=== PATIENT | male | born 1970 | race Caucasian/White ===

== ENCOUNTER 2016-08-04 21:56 | Emergency (ER) | payer OTHER | END 2016-08-05 03:44 | disposition home or self-care (01) | LOC: ER1 21:56 | DX: S62.001A Unspecified fracture of navicular [scaphoid] bone of right wrist, initial encounter for closed fracture (principal); F17.200 Nicotine dependence, unspecified, uncomplicated; V29.9XXA Motorcycle rider (driver) (passenger) injured in unspecified traffic accident, initial encounter; Y93.89 Activity, other specified | CPT/HCPCS: 29125; 73110; 96372; 99283; J1885 ==

== ENCOUNTER 2020-10-04 00:51 | Emergency (ER) | payer OTHER ==
[2020-10-04 02:35] LABS: HEMOGLOBIN 14.6 gm/dl (14.0-17.5); RED BLOOD COUNT 4.68 M/UL (4.20-5.50); WHITE BLOOD COUNT 16.1 K/UL (4.5-11.0)
[2020-10-04 02:48] LABS: BUN/CREATININE RATIO 23 (0-10)
[2020-10-06 17:09] LABS: CHLAMYDIA TRACHOMATIS, NAA Negative (Negative); NEISSERIA GONORRHOEAE, NAA Negative (Negative)
== END 2020-10-04 06:27 | disposition home or self-care (01) ==
LOC: ER1 00:51
PROVIDERS: Emergency Medicine
DX: R07.89 Other chest pain (principal); N43.3 Hydrocele, unspecified; I50.9 Heart failure, unspecified; F17.200 Nicotine dependence, unspecified, uncomplicated; Z20.822 Contact with and (suspected) exposure to COVID-19
CPT/HCPCS: 71045; 76870; 80053; 80307; 81001; 82550; 82553; 83690; 83735; 83874; 83880; 84100; 84484; 85025; 85379; 85610; 85730; 93005; 96374; 96375; 99285; J1885; J2270; J2405; U0002

== ENCOUNTER 2021-06-19 22:27 | Emergency (ER) | payer OTHER ==
[2021-06-20] MEDS ORDERED: PERCOCET 5/325 T1 EA PO (03:57)
== END 2021-06-20 04:13 | disposition home or self-care (01) ==
LOC: ER1 22:27
DX: M24.411 Recurrent dislocation, right shoulder (principal); I50.9 Heart failure, unspecified; F17.200 Nicotine dependence, unspecified, uncomplicated; W01.0XXA Fall on same level from slipping, tripping and stumbling without subsequent striking against object, initial encounter
CPT/HCPCS: 23650; 73030; 96374; 99283; J2270; J2405; J2704